=== PATIENT | male | born 1995 | race American Indian/Alaskan Native ===

== ENCOUNTER 2020-12-05 12:47 | Emergency (ER) | payer SELFPAY ==
--- NOTE | 2020-12-05 13:12 | Emergency Department Report ---
- General Chief complaint: Skin/Abscess/Foreign Body Stated complaint: BUMP ON TAILBONE Time Seen by Provider: 12/05/20 13:09 Source: patient Mode of arrival: Ambulatory Limitations: No Limitations - History of Present Illness Initial comments: Patient is a 25-year-old male who presents emergency room with complaints of a lump to his tailbone region that began 3 to 4 days ago. He states that it is open and draining. He states that it has been getting smaller in size but just still remains uncomfortable. He states he has been using Epson salt soaks. He denies any fever, chills, abdominal pain, rectal pain. He states that he has had this once in the past and had to have an I&D at that time. He denies any other past medical history. No allergies to medications. - Related Data Previous Rx's Medication Instructions Recorded Last Taken Type Naproxen 500 mg PO BID #20 tablet 12/05/20 Unknown Rx Sulfamethoxazole/Trimethoprim 1 each PO BID #14 tablet 12/05/20 Unknown Rx [Bactrim DS TAB] Allergies Allergy/AdvReac Type Severity Reaction Status Date / Time No Known Allergies Allergy Unverified 04/29/20 11:31 Abscess Boil HPI - HPI Chief Complaint: Skin/Abscess/Foreign Body Stated Complaint: BUMP ON TAILBONE Time Seen by Provider: 12/05/20 13:09 Home Medications: Previous Rx's Medication Instructions Recorded Last Taken Type Naproxen 500 mg PO BID #20 tablet 12/05/20 Unknown Rx Sulfamethoxazole/Trimethoprim 1 each PO BID #14 tablet 12/05/20 Unknown Rx [Bactrim DS TAB] Allergies/Adverse Reactions: Allergies Allergy/AdvReac Type Severity Reaction Status Date / Time No Known Allergies Allergy Unverified 04/29/20 11:31 ED Review of Systems ROS: Stated complaint: BUMP ON TAILBONE Other details as noted in HPI Comment: All other systems reviewed and negative ED Past Medical Hx - Past Medical History Previous Medical History?: No - Surgical History Past Surgical History?: No - Social History Smoking Status: Current Every Day Smoker Substance Use Type: Marijuana - Medications Home Medications: Home Medications Medication Instructions Recorded Confirmed Last Taken Type Naproxen 500 mg PO BID #20 tablet 12/05/20 Unknown Rx Sulfamethoxazole/Trimethoprim 1 each PO BID #14 tablet 12/05/20 Unknown Rx [Bactrim DS TAB] ED Physical Exam - General Limitations: No Limitations General appearance: alert, in no apparent distress - Head Head exam: Present: atraumatic, normocephalic - Eye Eye exam: Present: normal appearance - ENT ENT exam: Present: mucous membranes moist - Respiratory Respiratory exam: Absent: respiratory distress, accessory muscle use - Neurological Exam Neurological exam: Present: alert, oriented X3 - Psychiatric Psychiatric exam: Present: normal affect, normal mood - Skin Skin exam: Present: warm, dry, other (mailing jogger: christy ellis PA-C, there is a 2 cm area of induration to the gluteal cleft, there is an opening with small amount of drainage, no signficant surrounding erythema, no invovlement around the perianal region, perineum or scrotum, no necrosis) ED Course Vital Signs 12/05/20 12:50 Temperature 98.8 F Pulse Rate 93 H Respiratory 16 Rate Blood Pressure 127/68 O2 Sat by Pulse 99 Oximetry ED Medical Decision Making - Medical Decision Making Patient is a 25-year-old male who presents emergency room with complaints of a lump to his tailbone region that began 3 to 4 days ago. He states that it is open and draining. He states that it has been getting smaller in size but just still remains uncomfortable. He states he has been using Epson salt soaks. He denies any fever, chills, abdominal pain, rectal pain. He states that he has had this once in the past and had to have an I&D at that time. He denies any other past medical history. No allergies to medications. vitals are normal. on exam: mailing jogger: christy ellis PA-C, there is a 2 cm area of induration to the gluteal cleft, there is an opening with small amount of drainage, no signficant surrounding erythema, no invovlement around the perianal region, perineum or scrotum, no necrosis. Examination appears consistent with a pilonidal abscess, which is already open and draining and appears to be a smaller size without significant surrounding cellulitis. Does not need I&D at this time. Will place patient on a course of antibiotics and discussed the importance of follow-up. Patient will also be referred to a general surgeon. Patient given prescription for naproxen and Bactrim. Advised patient please take medication as prescribed. please do warm compresses three times a day. please do sitz baths. follow up with a primary care doctor. follow up with a general surgeon. return to the emergency room for any new or worsening symptoms or if symptoms are not improving. Critical care attestation.: If time is entered above; I have spent that time in minutes in the direct care of this critically ill patient, excluding procedure time. ED Disposition Clinical Impression: Pilonidal abscess Disposition: TO HOME OR SELFCARE Is pt being admited?: No Does the pt Need Aspirin: No Condition: Stable Instructions: Pilonidal Cyst Drainage Additional Instructions: please take medication as prescribed. please do warm compresses three times a day. please do sitz baths. follow up with a primary care doctor. follow up with a general surgeon. return to the emergency room for any new or worsening symptoms or if symptoms are not improving. Prescriptions: Sulfamethoxazole/Trimethoprim [Bactrim DS TAB] 1 each PO BID #14 tablet Naproxen 500 mg PO BID #20 tablet Referrals: LARRY SIBLEY MD [Staff Physician] - 2-3 Days [facility] [Provider Group] - 2-3 Days TEO KOENIG MD [Staff Physician] - 2-3 Days Time of Disposition: 13:10 Print Language: THAI
[2020-12-05 13:15] VITALS: BP 127/68
== END 2020-12-05 14:29 | disposition home or self-care (01) ==
LOC: ED 12:47
DX: L05.01 Pilonidal cyst with abscess (principal); F17.200 Nicotine dependence, unspecified, uncomplicated; F12.90 Cannabis use, unspecified, uncomplicated; Z79.899 Other long term (current) drug therapy
CPT/HCPCS: 99282

== ENCOUNTER 2021-07-15 13:46 | Emergency (ER) | payer SELFPAY ==
[2021-07-15] MEDS ORDERED: LIDOCAINE (2%) 20 MG/1 ML VIAL 20 ML MDV INFILTRATI ONE (14:06)
[2021-07-15 15:04] VITALS: BP 117/74
--- NOTE | 2021-07-15 15:08 | Emergency Department Report ---
Abscess Boil HPI - HPI Chief Complaint: Skin/Abscess/Foreign Body Stated Complaint: ABSYST ON INNER LEG Time Seen by Provider: 07/15/21 14:00 Duration: 2 Days Location: Lower Extremity Severity: Mild History: Yes Pain, No Fever, No Purulent Drainage, No Numbness, No Foreign Body, No Previous History, No Insect Bite HPI: This is a 25-year-old male nontoxic, well nourished in appearance, no acute signs of distress presents to the ED with c/o of redness and pain with some swelling to left upper near thigh x 2 days. Patient denies any pus or drainage. Patient denies any fever, chills, nausea, vomiting, chest pain, shortness of breath, headache or stiff neck. Patient denies any allergies or significant past medical history. Home Medications: Previous Rx's Medication Instructions Recorded Last Taken Type Naproxen 500 mg PO BID #20 tablet 12/05/20 Unknown Rx Sulfamethoxazole/Trimethoprim 1 each PO BID #14 tablet 12/05/20 Unknown Rx [Bactrim DS TAB] Naproxen 500 mg PO Q12H PRN #12 tablet 07/15/21 Unknown Rx Sulfamethoxazole/Trimethoprim 1 each PO BID #14 tablet 07/15/21 Unknown Rx [Bactrim DS TAB] Allergies/Adverse Reactions: Allergies Allergy/AdvReac Type Severity Reaction Status Date / Time No Known Allergies Allergy Verified 07/15/21 13:59 ED Review of Systems ROS: Stated complaint: ABSYST ON INNER LEG Other details as noted in HPI Comment: All other systems reviewed and negative Constitutional: denies: chills, fever Eyes: denies: eye pain, eye discharge, vision change ENT: denies: ear pain, throat pain Respiratory: denies: cough, shortness of breath, wheezing Cardiovascular: denies: chest pain, palpitations Endocrine: no symptoms reported Gastrointestinal: denies: abdominal pain, nausea, diarrhea Genitourinary: denies: urgency, dysuria Musculoskeletal: denies: back pain, joint swelling, arthralgia Skin: denies: rash, lesions Neurological: denies: headache, weakness, paresthesias Psychiatric: denies: anxiety, depression Hematological/Lymphatic: denies: easy bleeding, easy bruising ED Past Medical Hx - Past Medical History Previous Medical History?: No - Surgical History Past Surgical History?: No - Social History Smoking Status: Never Smoker - Medications Home Medications: Home Medications Medication Instructions Recorded Confirmed Last Taken Type Naproxen 500 mg PO BID #20 tablet 12/05/20 Unknown Rx Sulfamethoxazole/Trimethoprim 1 each PO BID #14 tablet 12/05/20 Unknown Rx [Bactrim DS TAB] Naproxen 500 mg PO Q12H PRN #12 tablet 07/15/21 Unknown Rx Sulfamethoxazole/Trimethoprim 1 each PO BID #14 tablet 07/15/21 Unknown Rx [Bactrim DS TAB] ED Abscess Boil Physical Exam - Exam General: Vital signs noted. No distress. Alert and acting appropriately. Vital Signs 07/15/21 14:00 Temperature 98.3 F Pulse Rate 70 Respiratory 18 Rate Blood Pressure 117/74 O2 Sat by Pulse 99 Oximetry Front/Back of Body, Lg (Color): 1 - 2 cm abscess here Size: 2 cm Exam: Yes Tenderness, Yes Fluctuance, Yes Surrounding Cellulites/Erythema, No Lymphangitis, No Crepitation, No Heart Murmur, No Normal Neurologic Exam, No Normal Circulation I & D Note - I & D Note I & D Note: Under sterile field, I used Betadine to cleanse the area. I then used 2% lidocaine plain with 25-gauge 5/8 needle to inject area for anesthetic purposes. Total volume injected 3 mL. I then used an 11 blade to make a 1 cm incision. About 2 mL's of purulent drainage has been noted. I then used a hemostat to break the abscess formation. I then used sterile 0.9% normal saline flush to flush the wound with total volume of 40 mL used. I then put a 1/4 iodoform packing to the incision. A sterile 4 x 4 with tape has been applied as dressing. Bleeding is under control. Patient tolerated the procedure well with no signs of distress noted. ED Course Vital Signs 07/15/21 14:00 Temperature 98.3 F Pulse Rate 70 Respiratory 18 Rate Blood Pressure 117/74 O2 Sat by Pulse 99 Oximetry - Reevaluation(s) Reevaluation #1: 07/15/21 15:05 Patient is speaking in full sentences with no signs of distress noted. Critical care attestation.: If time is entered above; I have spent that time in minutes in the direct care of this critically ill patient, excluding procedure time. ED Medical Decision Making - Medical Decision Making This is a 25-year-old male that presents with abscess. Patient is stable and wa s examined by me. This is incision and drainage and has been performed and patient tolerated well. A sterile dressing has been applied. Patient was educated on proper wound care. Patient is discharged with Bactrim. Patient was instructed to return in 2 days for packing removal. Patient was instructed to refer to Follow-up with a primary care doctor in 3-5 days or if symptoms worsen and continue return to emergency room as soon as possible. At time of discharge, the patient does not seem toxic or ill in appearance. No acute signs of distress noted. Patient agrees to discharge treatment plan of care. No further questions noted by the patient. ED Disposition Clinical Impression: Abscess, Encounter for incision and drainage procedure Disposition: HOME / SELF CARE / HOMELESS Is pt being admited?: No Does the pt Need Aspirin: No Condition: Stable Instructions: Skin Abscess, Incision and Drainage, Care After Additional Instructions: Follow-up with a primary care doctor in 3-5 days or if symptoms worsen and continue return to emergency room as soon as possible. Return in 2 days for packing removal and reassessment of the abscess. Prescriptions: Sulfamethoxazole/Trimethoprim [Bactrim DS TAB] 1 each PO BID #14 tablet Naproxen 500 mg PO Q12H PRN #12 tablet PRN Reason: Pain , Severe (7-10) Referrals: PRIMARY MD MORE [Referring] - 3-5 Days LARRY SIBLEY MD [Staff Physician] - 3-5 Days Forms: Work/School Release Form(ED) Time of Disposition: 15:08
== END 2021-07-15 15:23 | disposition home or self-care (01) ==
LOC: ED 13:46
DX: L02.416 Cutaneous abscess of left lower limb (principal)
CPT/HCPCS: 99282